=== PATIENT | female | born 1965 | race Caucasian/White ===

== ENCOUNTER 2017-12-29 16:29 | Inpatient (IN) | payer MEDICAID ==
[~2017-12-29] VITALS: Ht 160 cm; Wt 94.4 kg
[~2017-12-29 16:29] MED LIST: ATENOLOL50 MG PO; CLARITIN10 MG PO; ENALAPRIL20 M1 PO; FLEXERIL10 MG PO; HYDROCHLOROTHIA25 MG PO
[2017-12-29 16:33] VITALS: Ht 160 cm; Wt 94.4 kg
[2017-12-29 17:44] LABS: CARBON DIOXIDE 28.2 mmol/L (21-32); CHLORIDE SERUM 99 mmol/L (98-107); CREATININE SERUM 0.9 mg/dL (0.6-1.0); GFR1 > 60 mL/min; GLUCOSE SERUM 271 mg/dL (74-106); POTASSIUM SERUM 3.5 mmol/L (3.5-5.1); SODIUM SERUM 135 mmol/L (136-145)
[2017-12-29 17:49] LABS: BASOPHIL % 0.6 % (0-2); PLATELET COUNT 315 x10^3mcL (130-400); RED CELL DISTRIBUTION WIDTH 13.3 % (11.5-14.5)
[2017-12-29 17:51] LABS: ALBUMIN 3.6 g/dL (3.4-5.0); ALKALINE PHOSPHATASE 110 U/L (46-116); ALT/SGPT 70 U/L (14-59); AST/SGOT 37 U/L (15-37); BILIRUBIN TOTAL 0.4 mg/dL (0.20-1.00); TOTAL PROTEIN, SERUM 7.4 g/dL (6.4-8.2)
[2017-12-29 18:03] LABS: FREE T4 1.08 ng/dL (0.76-1.46); FREE THYROXINE INDEX 2.6 ug/dL (1.4-4.5); T4(THYROXINE) 8.2 ug/dL (4.7-13.3)
[2017-12-29 18:19] LABS: T3 TOTAL 1.02 ng/mL
[2017-12-29] MEDS ORDERED: METFORMIN HCL500 MG PO (18:38)
[2017-12-29 19:43] VITALS: BP 165/82
[2017-12-29 19:58] LABS: MAGNESIUM 1.5 mg/dL (1.8-2.4); PHOSPHOROUS 3.5 mg/dL (2.5-4.9)
[2017-12-29 19:59] LABS: CHOLESTEROL/HDL RATIO 5.3
[2017-12-30 01:16] VITALS: BP 151/78
[2017-12-30 05:27] VITALS: BP 154/73
[2017-12-30 06:07] LABS: RED CELL DISTRIBUTION WIDTH 13.7 % (11.5-14.5)
[2017-12-30 06:25] LABS: BASOPHIL % 0.4 % (0-2); PLATELET COUNT 282 x10^3mcL (130-400)
[2017-12-30 06:40] LABS: CALCIUM 8.7 mg/dL (8.5-10.1); CARBON DIOXIDE 27.1 mmol/L (21-32); CHLORIDE SERUM 101 mmol/L (98-107); CREATININE SERUM 0.8 mg/dL (0.6-1.0); GFR1 > 60 mL/min; GLUCOSE SERUM 230 mg/dL (74-106); POTASSIUM SERUM 3.8 mmol/L (3.5-5.1); SODIUM SERUM 135 mmol/L (136-145)
[2017-12-30 08:50] VITALS: BP 165/82
[2017-12-30 11:44] VITALS: BP 156/73
[2017-12-30] MEDS ORDERED: CARVEDILOL12.5 M1 PO (12:54)
[2017-12-30] MEDS ORDERED: LOSARTAN POTASS50 M1 PO (12:56)
[2017-12-30] MEDS ORDERED: NOR5 PO (12:58)
[2017-12-30] MEDS ORDERED: ALDACTAZIDE PO (13:00)
[2017-12-30] MEDS ORDERED: LIPI10 PO (13:01)
[2017-12-30 13:48] VITALS: BP 156/73
== END 2017-12-30 15:30 | disposition home or self-care (01) | DRG 199 ==
LOC: ED 16:29 → DU 19:03
PROVIDERS: Emergency Medicine; Family Medicine
DX: I16.0 Hypertensive urgency (principal); E11.65 Type 2 diabetes mellitus with hyperglycemia; E78.5 Hyperlipidemia, unspecified; I25.10 Atherosclerotic heart disease of native coronary artery without angina pectoris; Z68.37 Body mass index [BMI] 37.0-37.9, adult; Z91.11 Patient's noncompliance with dietary regimen; Z79.84 Long term (current) use of oral hypoglycemic drugs
CPT/HCPCS: 82962; 83880; 84439; 90658; Q0092

== ENCOUNTER 2019-09-15 11:22 | Emergency (ER) | payer OTHER, SELFPAY ==
[~2019-09-15] VITALS: Ht 160 cm; Wt 94.3 kg
[~2019-09-15 11:22] MED LIST changes: +ALDACTAZIDE PO; +CARVEDILOL12.5 M1 PO; +LIPI10 PO; +LOSARTAN POTASS50 M1 PO; +METFORMIN HCL500 MG PO; +NOR5 PO
[2019-09-15 12:13] VITALS: Ht 160 cm; Wt 94.3 kg
[2019-09-15 12:49] LABS: BASOPHIL % 0.4 % (0-2); PLATELET COUNT 280 x10^3mcL (130-400)
[2019-09-15 12:58] LABS: RED CELL DISTRIBUTION WIDTH 14.6 % (11.5-14.5)
[2019-09-15 13:08] LABS: CARBON DIOXIDE 25.2 mmol/L (21-32); CHLORIDE SERUM 99 mmol/L (98-107); CREATININE SERUM 1.1 mg/dL (0.6-1.0); GFR1 55 mL/min; GLUCOSE SERUM 241 mg/dL (74-106); POTASSIUM SERUM 3.1 mmol/L (3.5-5.1); SODIUM SERUM 138 mmol/L (136-145)
[2019-09-15 13:13] LABS: ALBUMIN 3.7 g/dL (3.4-5.0); ALKALINE PHOSPHATASE 70 U/L (46-116); ALT/SGPT 78 U/L (14-59); AST/SGOT 43 U/L (15-37); BILIRUBIN TOTAL 0.46 mg/dL (0.20-1.00); HDL CHOLESTEROL 37 mg/dL (40-60); TOTAL PROTEIN, SERUM 7.2 g/dL (6.4-8.2)
[2019-09-15 13:15] LABS: CHOLESTEROL 131 mg/dL (<200)
[2019-09-15 13:18] LABS: UA SPECIFIC GRAVITY 1.015 (1.005-1.035); microscopic required? YES; urine erythrocyte NEGATIVE (NEGATIVE)
[2019-09-15 17:21] VITALS: BP 145/77
== END 2019-09-15 17:21 | disposition home or self-care (01) ==
LOC: ED 11:22
PROVIDERS: Emergency Medicine
DX: U07.1 COVID-19 (principal); E86.0 Dehydration; E87.6 Hypokalemia; I10 Essential (primary) hypertension; E11.9 Type 2 diabetes mellitus without complications
CPT/HCPCS: J1885; J7030; Q0092; U0003-CS

== ENCOUNTER 2019-12-09 18:53 | Inpatient (IN) | payer OTHER ==
[~2019-12-09] VITALS: Ht 160 cm; Wt 95.7 kg
[~2019-12-09 18:53] MED LIST changes: +GLUCOPHAGE1000 MG PO; -METFORMIN HCL500 MG PO
[2019-12-09 19:01] VITALS: Ht 160 cm; Wt 95.7 kg
[2019-12-09 21:51] LABS: BASOPHIL % 0.3 % (0-2); PLATELET COUNT 355 x10^3mcL (130-400)
[2019-12-09 21:53] LABS: microscopic required? NO
[2019-12-09 21:54] LABS: RED CELL DISTRIBUTION WIDTH 14.9 % (11.5-14.5)
[2019-12-09 22:08] LABS: ALBUMIN 3.8 g/dL (3.4-5.0); ALKALINE PHOSPHATASE 71 U/L (46-116); ALT/SGPT 62 U/L (14-59); AST/SGOT 32 U/L (15-37); BILIRUBIN TOTAL 0.4 mg/dL (0.20-1.00); CALCIUM 9.3 mg/dL (8.5-10.1); CARBON DIOXIDE 28.2 mmol/L (21-32); CHLORIDE SERUM 98 mmol/L (98-107); CREATININE SERUM 0.9 mg/dL (0.6-1.0); GFR1 > 60 mL/min; GLUCOSE SERUM 232 mg/dL (74-106); LIPASE 160 IU/L (73-393); SODIUM SERUM 136 mmol/L (136-145); TOTAL PROTEIN, SERUM 7.3 g/dL (6.4-8.2)
[2019-12-09 22:21] LABS: POTASSIUM SERUM 2.8 mmol/L (3.5-5.1)
[2019-12-09 22:24] LABS: UA SPECIFIC GRAVITY 1.025 (1.005-1.035); urine erythrocyte NEGATIVE (NEGATIVE)
[2019-12-10 02:40] VITALS: BP 190/79
[2019-12-10] MEDS ORDERED: HYDRALAZINE HCL50 MG PO (02:59)
[2019-12-10] MEDS ORDERED: LIPITOR40 MG PO (03:04)
[2019-12-10] MEDS ORDERED: DICLOFENAC SOD75 M1 PO (03:06)
[2019-12-10] MEDS ORDERED: GLUCOTROL5 MG PO (03:08)
[2019-12-10] MEDS ORDERED: CHLORTHALIDONE50 MG PO (03:08)
[2019-12-10 05:24] VITALS: BP 135/97
[2019-12-10 05:56] VITALS: BP 174/79
[2019-12-10 07:00] LABS: BASOPHIL % 0.3 % (0-2); PLATELET COUNT 305 x10^3mcL (130-400)
[2019-12-10 07:29] LABS: RED CELL DISTRIBUTION WIDTH 14.7 % (11.5-14.5)
[2019-12-10 07:48] LABS: CALCIUM 8.6 mg/dL (8.5-10.1); CARBON DIOXIDE 28.3 mmol/L (21-32); CHLORIDE SERUM 102 mmol/L (98-107); CREATININE SERUM 0.6 mg/dL (0.6-1.0); GFR1 > 60 mL/min; GLUCOSE SERUM 196 mg/dL (74-106); HDL CHOLESTEROL 37 mg/dL (40-60); MAGNESIUM 1.3 mg/dL (1.8-2.4); PHOSPHOROUS 3.2 mg/dL (2.5-4.9); POTASSIUM SERUM 3.2 mmol/L (3.5-5.1); SODIUM SERUM 139 mmol/L (136-145); TRIGLYCERIDES 186 mg/dL (<150)
[2019-12-10 07:49] LABS: CHOLESTEROL 130 mg/dL (<200); CHOLESTEROL/HDL RATIO 3.5
[2019-12-10 09:02] VITALS: BP 165/88
[2019-12-10 12:13] VITALS: BP 159/85
[2019-12-10 21:02] VITALS: BP 173/87
[2019-12-11 05:58] VITALS: BP 186/79
[2019-12-11 06:23] LABS: BASOPHIL % 0.2 % (0-2); PLATELET COUNT 308 x10^3mcL (130-400)
[2019-12-11 06:24] LABS: RED CELL DISTRIBUTION WIDTH 14.6 % (11.5-14.5)
[2019-12-11 06:35] LABS: CALCIUM 8.4 mg/dL (8.5-10.1); CARBON DIOXIDE 30.2 mmol/L (21-32); CHLORIDE SERUM 101 mmol/L (98-107); CREATININE SERUM 0.6 mg/dL (0.6-1.0); GFR1 > 60 mL/min; GLUCOSE SERUM 184 mg/dL (74-106); MAGNESIUM 1.3 mg/dL (1.8-2.4); PHOSPHOROUS 3.2 mg/dL (2.5-4.9); SODIUM SERUM 138 mmol/L (136-145)
[2019-12-11 08:07] VITALS: BP 157/88
[2019-12-11 12:04] VITALS: BP 150/85
[2019-12-11 16:44] VITALS: BP 174/86
[2019-12-11 18:25] VITALS: BP 165/72
[2019-12-11 20:00] VITALS: BP 158/68
[2019-12-12 06:27] VITALS: BP 149/77
[2019-12-12 07:45] LABS: BASOPHIL % 0.3 % (0-2); PLATELET COUNT 272 x10^3mcL (130-400)
[2019-12-12 07:50] LABS: CALCIUM 9.3 mg/dL (8.5-10.1); CHLORIDE SERUM 102 mmol/L (98-107); CREATININE SERUM 0.6 mg/dL (0.6-1.0); GFR1 > 60 mL/min; GLUCOSE SERUM 161 mg/dL (74-106); MAGNESIUM 1.7 mg/dL (1.8-2.4); PHOSPHOROUS 3.4 mg/dL (2.5-4.9); POTASSIUM SERUM 3.2 mmol/L (3.5-5.1); SODIUM SERUM 137 mmol/L (136-145)
[2019-12-12 08:51] VITALS: BP 141/58
[2019-12-12 14:39] VITALS: BP 138/93
[2019-12-12 16:13] VITALS: BP 147/64
[2019-12-12 21:21] VITALS: BP 162/75
[2019-12-13 05:53] VITALS: BP 153/91
[2019-12-13 06:36] LABS: BASOPHIL % 0.2 % (0-2); PLATELET COUNT 317 x10^3mcL (130-400)
[2019-12-13 06:38] LABS: CALCIUM 8.6 mg/dL (8.5-10.1); CARBON DIOXIDE 27.4 mmol/L (21-32); CHLORIDE SERUM 103 mmol/L (98-107); CREATININE SERUM 0.7 mg/dL (0.6-1.0); GFR1 > 60 mL/min; GLUCOSE SERUM 163 mg/dL (74-106); MAGNESIUM 1.4 mg/dL (1.8-2.4); PHOSPHOROUS 3.2 mg/dL (2.5-4.9); POTASSIUM SERUM 3.2 mmol/L (3.5-5.1); SODIUM SERUM 139 mmol/L (136-145)
[2019-12-13 06:45] LABS: RED CELL DISTRIBUTION WIDTH 14.7 % (11.5-14.5)
[2019-12-13 07:27] VITALS: BP 146/99
[2019-12-13] MEDS ORDERED: PROTONIX TR40 M1 PO (09:25)
[2019-12-13 12:38] VITALS: BP 182/89
== END 2019-12-13 15:55 | disposition home or self-care (01) | DRG 241 ==
LOC: ED 18:53 → MU 23:48 → DU 23:48
PROVIDERS: Emergency Medicine; Internal Medicine; ADMIT Hospitalist; ATTEND Hospitalist
PROC: 0DB68ZX Excision of Stomach, Via Natural or Artificial Opening Endoscopic, Diagnostic (ICD-10-PCS; principal; 2019-12-12 13:00)
PROC: 0DJD8ZZ Inspection of Lower Intestinal Tract, Via Natural or Artificial Opening Endoscopic (ICD-10-PCS; 2019-12-12 13:00)
DX: K29.70 Gastritis, unspecified, without bleeding (principal); E11.65 Type 2 diabetes mellitus with hyperglycemia; Z20.828 Contact with and (suspected) exposure to other viral communicable diseases; E78.00 Pure hypercholesterolemia, unspecified; I10 Essential (primary) hypertension; E87.6 Hypokalemia; Z83.3 Family history of diabetes mellitus; Z82.49 Family history of ischemic heart disease and other diseases of the circulatory system; Z82.3 Family history of stroke; Z98.51 Tubal ligation status; R19.7 Diarrhea, unspecified; K59.00 Constipation, unspecified; K57.90 Diverticulosis of intestine, part unspecified, without perforation or abscess without bleeding
CPT/HCPCS: 43235; 45378; 82962; 87046; 87046-59; G0378; J1200; J1610; J1650; J1815; J2250; J2310; J2405; J3010; J3475; J3480; J3490; J7030; J8597